=== PATIENT | female | born 1960 | race Caucasian/White ===

== ENCOUNTER 2018-11-21 07:33 | Emergency (ER) | payer BC, MEDICAID ==
[~2018-11-21] VITALS: Ht 167.6 cm; Wt 120.0 kg
[2018-11-21 09:27] VITALS: BP 115/62
== END 2018-11-21 10:18 | disposition home or self-care (01) ==
LOC: ED 10:07
DX: G89.29 Other chronic pain (principal); M48.02 Spinal stenosis, cervical region; M54.2 Cervicalgia; H66.001 Acute suppurative otitis media without spontaneous rupture of ear drum, right ear; I10 Essential (primary) hypertension; F17.200 Nicotine dependence, unspecified, uncomplicated
CPT/HCPCS: 36415; 72125; 80048; 82040; 85025; 85651; 96374; 96375; 96376; 99284; J1170; J2405